=== PATIENT | female | born 1985 | race Caucasian/White ===

== ENCOUNTER → 2024-01-22 14:12 | Outpatient (REF) | payer BC, SELFPAY | LOC: HWRAD 14:12 | PROVIDERS: ATTENDING PHYSICIAN Registered Nurse; FAMILY PHYSICIAN Family Medicine | DX: R07.89 Other chest pain (principal) | CPT/HCPCS: 71275; Q9967 ==

== ENCOUNTER 2024-05-03 19:08 | Emergency (ER) | payer BC, SELFPAY ==
[2024-05-03 19:12] VITALS: BP 166/106
[2024-05-03 19:37] LABS: % Basophils 0.5 % (0-2); % Immature Granulocytes 0.2 % (0-0.5); % Lymphocytes 27.8 % (20.5-51.1); % Monocytes 5.7 % (1.7-9.3); % Neutrophils 62.8 % (42.2-75.2); Absolute Eosinophils 0.3 10^3/uL (0-0.7); Absolute Lymphocytes 2.4 10^3/uL (1.2-3.4); Absolute Monocytes 0.5 10^3/uL (0.1-0.6); Absolute Neutrophils 5.5 10^3/uL (1.4-6.5); Hematocrit 38.7 % (37.0-47.0); Hemoglobin 14.1 g/dL (12.0-16.0); Mean Corp Hgb Conc. 36.4 g/dL (33.0-37.0); Mean Corpuscular Hgb 31.9 pg (27.0-31.0); Mean Corpuscular Volume 87.6 fL (81.0-99.0); Mean Platelet Volume 9.3 fL (7.4-10.4); Nucleated Red Blood Cells % 0 %; Platelet Count 214 10^3/uL (130-400); Red Blood Cell Count 4.42 10^6/uL (4.20-5.40); Red Cell Dist. Width 12.1 % (11.5-14.5); White Blood Cell Count 8.7 10^3/uL (4.8-10.8)
[2024-05-03 19:56] LABS: ALT (SGPT) 15 U/L (0-35); AST (SGOT) 19 U/L (14-36); Albumin 4.7 g/dl (3.5-5.0); Alkaline Phosphatase 47 U/L (38-126); Blood Urea Nitrogen 8 mg/dl (7-17); Calcium 9.7 mg/dl (8.4-10.2); Carbon Dioxide 24 mmol/L (22-30); Chloride 106 mmol/L (98-107); Glucose 162 mg/dl (70-99); Magnesium 2.1 mg/dl (1.6-2.3); Potassium 3.9 mmol/L (3.5-5.1); Sodium 138 mmol/L (135-145); Total Bilirubin 2.2 mg/dl (0.2-1.3); eGFR > 60.00
[2024-05-03 20:06] LABS: Troponin I < 0.012 ng/ml
[2024-05-03 20:29] LABS: TSH Reflex To Free T4 2.28 uIU/ml (0.47-4.68)
[2024-05-03 21:48] VITALS: BP 143/89; BMI 23.8
[2024-05-03 22:00] VITALS: BP 142/77
--- NOTE | 2024-05-03 22:16 | ED.GENMED ---
History of Present Illness
General
Chief Complaint: Heart Rate Problem
Source: patient
Exam Limitations: none
Time Seen by Provider: 05/03/24 21:55
Nursing documentation reviewed up to this point in time: agreed with
History of Present Illness
History of Present Illness:
The patient is a pleasant 38-year-old female who reports that around noon today she developed rapid palpitations of her heart. Patient reports that she has never had this before. She denies heavy menstrual periods, fever, nausea, vomiting and
diarrhea. Patient also reports associated left-sided chest pain. She denies a history of PE and DVT. She denies being on the control pill and denies recent long car ride or plane ride. Patient reports she has no known history of rapid
heartbeat.
Past History
Past History
ED Past Medical History: None
ED Past Surgical History:
Social History
Tobacco: Non-smoker
Alcohol: Occasional
Drug: None
Personal:
Living: with family
Employment: Employed
Family History
Family History: Other
Review of Systems
Review of Systems
Allergies reviewed?: Yes
All Other Systems: ROS reviewed and negative except as documented in HPI and ROS
Constitutional: Reports no symptoms
EENT: Reports no symptoms
Respiratory: Reports no symptoms
Cardiac: Reports chest pain and palpitations
ABD/GI: Reports no symptoms
: Reports no symptoms
Musculoskeletal: Reports no symptoms
Skin: Reports no symptoms
Neurological: Reports no symptoms
Endocrine: Reports no symptoms
Hematologic/Lymphatic: Reports no symptoms
Psychiatric: Reports no symptoms
Phy Exam
Physical Exam
Physical Exam:
Physical Exam
General: no apparent distress, not acutely ill
Neck: supple. no meningeal signs. normal psoterior pharynx
Heart: Tachycardic, regular
Lungs: no acute respiratory distress. clear bilaterally
Abdomen: normal bowel sounds. not tender. no CVAT
Neuro: alert and oriented. no focal neurological deficits
Skin: no rash
Psychiatric: well kept. interactive and cooperative
Extremities: no edema. no calf tenderness. negative homans. good distal pulses
Course
Orders/Labs/Results
Orders:
Orders
05/03/24 19:09
Electrocardiogram (*1) Urgent
Reason for Study: Chest Pain
EKG- Treatment ONCE
05/03/24 19:28
Complete Blood Count/With Diff Urgent
Comprehensive Metabolic Panel Urgent
Magnesium Urgent
TSH Reflex To Free T4 Urgent
Troponin I Urgent
05/03/24 22:15
CT Chest PE Study Urgent
Comment:
Reason For Exam: CP, tachycardia
0.9% Sodium Chloride 1000 ml [Nss] 1,000 ml IV BOLUS
05/03/24 22:37
Influenza A+B Rapid Molecular Urgent
TEMO Source: Nasal Swab
Specimen Description:
05/04/24 01:34
Metoprolol Xl [Toprol Xl] 25 mg PO NOW STA
Abnormal Lab Results
05/03/24
19:28
MCH 31.9 H pg
(27.0-31.0)
Glucose 162 H mg/dl
(70-99)
Total Bilirubin 2.2 H mg/dl
(0.2-1.3)
05/03/24 19:28
05/03/24 19:28
Vital Signs
Initial and Last Documented VS:
Initial Vital Signs
Temp Pulse Resp BP Pulse Ox
98.2 F 136 20 166/106 99
05/03/24 19:12 05/03/24 19:12 05/03/24 19:12 05/03/24 19:12 05/03/24 19:12
Last Documented Vital Signs
Temp Pulse Resp BP Pulse Ox
98.2 F 102 13 133/84 98
05/03/24 19:12 05/04/24 01:45 05/04/24 01:30 05/04/24 01:45 05/04/24 01:30
MDM/Problems Addressed
Differential Diagnosis Includes:
PE, hyperthyroidism, dehydration
MDM/Problems Addressed:
Patient presents with acute chest pain and palpitations
Acute Exacerbation and/or Progression of Chronic Illness:
Patient is acutely hypertensive, likely due to anxiety being in the ED and the palpitations
Acute Exacerbation and/or Progression of Chronic Illness: HTN
*Radiology
Radiology exam reviewed: radiology read reviewed
*Pulse Oximetry
Patient hypoxic: no
*EKG
Interpreted by ED Provider?: Yes
Interpretation: abnormal
Comparison EKG: no comparison EKG present
Rate: tachycardiac
Rhythm: sinus
[place]: normal axis
Interval: normal interval
QRS Pattern: normal QRS
Ischemia: no ischemia
*Beck Operator Interpretation
Rate: tachycardiac
Interpretation: abnormal
Rhythm: sinus
*Critical Care Note
Total Time (30-74mins, 75-104mins- exclusive of procedures): Not Applicable
Data Reviewed
Review of Other/Old Records Reveals: Testing (Patient had a normal exercise stress test in 2022)
Source: patient
Patient Management
Social determinants of health affecting care: Living situation and Strong social support
Discussion with other providers: Other (Case discussed with Dr. Jayson Rust who felt the patient could be started on Toprol XL with close follow-up by cardiology. Patient is comfortable this plan)
Update Note
Update Note:
Patient's heart rate ranges from 90s to 120s. She remains well appearing. CT shows no sign of pericardial effusion or PE.
Patient told to not exercise or do any heavy exertion until evaluated by cardiology.
Patient told to return with any lightheadedness, episodes of passing out, or shortness of breath.
ED Attending Note
-
Portions of this chart may have been created with voice recognition software.� Occasional wrong word or��sound alike� substitutions may have occurred due to the inherent limitations of voice recognition software.
Discharge Plan
Departure
Patient Disposition: Home (Routine Discharge)
Date of Disposition: 05/04/24
Time of Disposition: 01:35
Patient with high blood pressure during this ER visit?: Yes
Condition: Good
Covid-19: Not Applicable
Discharge Problem:
Sinus tachycardia
Instructions: Sinus Tachycardia (DC), Chest Pain CBC Follow Up, BLOOD PRESSURE
Prescriptions:
New
metoprolol succinate [Toprol XL] 25 mg tablet extended release 24 hr
25 mg PO DAILY Qty: 30 0RF
Referrals:
Pepe Flores MD [Active] - (Call this Sunday to schedule an appointment)
Lynn Mcdonough MD [Family Provider] -
Activity Restrictions/Additional Instructions:
Call Sunday to schedule appoint with cardiology to see within 1 week. Avoid any exercise or heavy exertion before being evaluated by cardiology.
Interventions
Interventions:
*General Assessment Last Done: 05/03/24 19:12
ED- Fall Risk Assessment Last Done: 05/03/24 21:48
*ED COVID-19 Vaccine History Last Done: 05/03/24 21:48
ED- Cardiac Assessment Last Done: 05/03/24 21:48
ED- Pulmonary Assessment Last Done: 05/03/24 21:48
Discharge Date and Time
Print Language: SLOVENIAN
[2024-05-03] MEDS: NSS 1000 IV (22:50)
[2024-05-03 23:00] VITALS: BP 138/86
[2024-05-04] VITALS: BP 122/77
[2024-05-04 01:00] VITALS: BP 133/84
[2024-05-04 01:45] VITALS: BP 115/76
[2024-05-04] MEDS: TOPROL XL 25 MG PO (01:45)
== END 2024-05-04 02:05 | disposition home or self-care (01) ==
LOC: EMR 19:08
PROVIDERS: Emergency Medicine; EMERGENCY PHYSICIAN Emergency Medicine; FAMILY PHYSICIAN Family Medicine
DX: R00.0 Tachycardia, unspecified (principal)
CPT/HCPCS: 99284; 96360; 71275; 80053; 83735; 84443; 84484; 85025; 87502; 93005; Q9967

== ENCOUNTER → 2024-05-12 08:19 | Outpatient (REF) | payer BC, SELFPAY | LOC: HWRCS 08:19 | PROVIDERS: ATTENDING PHYSICIAN Internal Medicine Cardiovascular Disease; FAMILY PHYSICIAN Family Medicine | DX: R07.89 Other chest pain (principal); Z82.49 Family history of ischemic heart disease and other diseases of the circulatory system; R06.02 Shortness of breath; R00.0 Tachycardia, unspecified | CPT/HCPCS: 93306 ==

== ENCOUNTER → 2024-07-04 11:31 | Outpatient (REF) | payer BC, SELFPAY | LOC: HWRAD 11:31 | PROVIDERS: ATTENDING PHYSICIAN Family Medicine | DX: E01.0 Iodine-deficiency related diffuse (endemic) goiter (principal) | CPT/HCPCS: 76536 ==